=== PATIENT | female | born 1970 | race Caucasian/White ===

== ENCOUNTER 2019-01-25 14:50 | Emergency (ER) | payer OTHER ==
[~2019-01-25] VITALS: Ht 157.5 cm; Wt 93.9 kg
[2019-01-25] MEDS ORDERED: NORCO 5-325 TA1 EAC1 PO (15:40)
[2019-01-25] MEDS ORDERED: MEDROLDOSEPACK PO (15:40)
[2019-01-25 16:06] VITALS: BP 129/69
== END 2019-01-25 16:10 | disposition home or self-care (01) ==
LOC: M.ERS 14:50
DX: M54.5 Low back pain (principal); Z88.0 Allergy status to penicillin; Z98.51 Tubal ligation status